=== PATIENT | female | born 1945 | race American Indian/Alaskan Native ===

== ENCOUNTER 2018-03-31 05:19 | Inpatient (IN) | payer MEDICARE, BC ==
[2018-03-31] MEDS: LACTATED RINGER'S 1,000 ML IV (06:00)
[2018-03-31] MEDS ORDERED: CEFAZOLIN 2 GM/50 ML (PMX) 50 ML (FOR WT < 120 KG) IVPB (06:00)
[2018-03-31] MEDS: CEFAZOLIN 2 GM/50 ML (PMX) 50 ML (FOR WT < 120 KG) IVPB (06:00)
[2018-03-31 06:36] LABS: ADD MAN DIFF? NO
[2018-03-31 06:38] LABS: WHITE BLOOD COUNT 6.5 10^3/ul (4.8-10.8)
[2018-03-31 06:38] LABS: BASOPHIL # 0.1 10^3/ul (0.0-0.1); BASOPHILS % 0.8 % (0.0-2.0); EOSINOPHILS # 0.3 10^3/ul (0.0-0.5); EOSINOPHILS % 4.8 % (0.0-7.0); HEMATOCRIT 39.6 % (37.0-47.0); HEMOGLOBIN 12.9 g/dl (12.0-16.0); LYMPHOCYTES # 1.4 10^3/ul (0.8-2.9); LYMPHOCYTES % 20.9 % (15.0-51.0); MEAN CORPUSCULAR HEMOGLOBIN 30.3 pg (29.0-33.0); MEAN CORPUSCULAR HGB CONC 32.6 g/dl (32.0-37.0); MEAN PLATELET VOLUME 10.5 fl (7.4-10.4); MONOCYTE # 0.6 10^3/ul (0.3-0.9); MONOCYTES % 9.2 % (0.0-11.0); NEUTROPHIL # 4.2 10^3/ul (1.6-7.5); PLATELET COUNT 199 10^3/UL (140-415); RED BLOOD COUNT 4.26 10^6/ul (4.20-5.40); RED CELL DISTRIBUTION WIDTH 14.6 % (11.5-14.5)
[2018-03-31] MEDS ORDERED: PROPOFOL 1000 MG INJ (07:00)
[2018-03-31] MEDS ORDERED: POLYMYXIN B 500000 UNIT INJ (07:05)
[2018-03-31 07:12] LABS: INR 0.99; PROTIME 13.2 Sec (11.9-14.9)
[2018-03-31 07:13] LABS: PARTIAL THROMBOPLASTIN TIME 26.9 Sec (25.0-35.0)
[2018-03-31 07:22] LABS: ALANINE AMINOTRANSFERASE 25 IU/L (13-69); ALBUMIN 3.8 g/dl (3.3-4.9); ALKALINE PHOSPHATASE 99 IU/L (42-121); ANION GAP 13 (8-16); ASPARTATE AMINO TRANSFERASE 24 IU/L (15-46); BILIRUBIN,TOTAL 0.3 mg/dl (0.2-1.3); CARBON DIOXIDE 26 mmol/L (21-31); CHLORIDE 108 mmol/L (97-110); GLUCOSE 92 mg/dl (70-220); TOTAL PROTEIN 6.5 g/dl (6.1-8.1)
[2018-03-31] MEDS ORDERED: PROPOFOL 20 ML (07:25)
[2018-03-31] MEDS ORDERED: CEFAZOLIN 1 GM INJ (07:25)
[2018-03-31] MEDS ORDERED: MIDAZOLAM 1 MG/ML 2 ML INJ (07:25)
[2018-03-31] MEDS ORDERED: FENTAnyl 50 MCG/ML VIAL (07:25)
[2018-03-31] MEDS ORDERED: DEXAMETHASONE 4 MG/ML 1 ML INJ (07:25)
[2018-03-31] MEDS ORDERED: ONDANSETRON 4 MG INJ (07:25)
[2018-03-31] MEDS ORDERED: NEOSTIGMINE 3 MG/3 ML SYRINGE (07:25)
[2018-03-31] MEDS ORDERED: GLYCOPYRROLATE 0.4 MG INJ (07:25)
[2018-03-31] MEDS ORDERED: ROCURONIUM 50 MG INJ (07:25)
[2018-03-31 07:26] LABS: BLOOD UREA NITROGEN 17 mg/dl (7-20); CALCIUM 9.2 mg/dl (8.4-10.2); POTASSIUM 3.9 mmol/L (3.5-5.1); SODIUM 143 mmol/L (135-144)
[2018-03-31] MEDS ORDERED: BUPIVACAINE 0.75%/DEXT (SPINAL) 2 ML INJ (07:27)
[2018-03-31] MEDS ORDERED: morphine SULFATE/PF (10 MG/10 ML) INJ (07:27)
[2018-03-31] MEDS ORDERED: NACL 0.9% 3 ML SYG IV (08:00)
[2018-03-31] MEDS ORDERED: MAGNESIUM HYDROXIDE 30ML CUP PO (08:00)
[2018-03-31] MEDS: ONDANSETRON 4 MG INJ IV ×3 (08:00→20:52)
[2018-03-31] MEDS ORDERED: DIPHENHYDRAMINE 50 MG INJ IV ×2 (08:00→08:30)
[2018-03-31] MEDS ORDERED: NALOXONE (0.4 MG/ML) INJ IV ×2 (08:00→08:30)
[2018-03-31] MEDS ORDERED: BISACODYL 10 MG SUPP PR (08:00)
[2018-03-31] MEDS ORDERED: SENNA/DOCUSATE NA (8.6MG/50MG) TAB PO (08:00)
[2018-03-31] MEDS ORDERED: oxyCODONE 5 MG TAB PO (08:00)
[2018-03-31] MEDS ORDERED: NA PHOSPHATE/BIPHOS 133 ML ENEMA PR (08:00)
[2018-03-31] MEDS: TRANEXAMIC ACID 1,000 MG in D5W 100 ML AT INCISION X1 IVPB (08:01)
[2018-03-31] MEDS: BACITRACIN 50000 UNITS INJ (08:16)
[2018-03-31] MEDS: POLYMYXIN B 500000 UNIT INJ IRR (08:16)
[2018-03-31] MEDS: TRANEXAMIC ACID 1,000 MG in D5W 100 ML AT CLOSURE X1 IVPB ×2 (08:17→09:38)
[2018-03-31] MEDS ORDERED: HYDROmorphONE 1 MG/5 ML IV SYRINGE IV ×3 (08:30)
[2018-03-31] MEDS ORDERED: hydrALAzine 20 MG INJ IV (08:30)
[2018-03-31] MEDS ORDERED: TRIMETHOBENZAMIDE 100 MG/ML VIAL IM (08:30)
[2018-03-31] MEDS ORDERED: OXYCODONE/ACETAMINOPHEN (5/325) TAB PO ×2 (08:30)
[2018-03-31] MEDS ORDERED: ONDANSETRON 4 MG INJ IV (08:30)
[2018-03-31] MEDS ORDERED: FENTAnyl 50 MCG/ML VIAL IV ×3 (08:30)
[2018-03-31] MEDS ORDERED: EPHEDrine SULFATE 50 MG/5 ML SYG IV (08:30)
[2018-03-31] MEDS ORDERED: MEPERIDINE 25 MG INJ IV (08:30)
[2018-03-31] MEDS ORDERED: IPRATROPIUM (NEB) 0.5 MG/2.5 ML AMP HHN (08:30)
[2018-03-31] MEDS ORDERED: LABETALOL HCL 20MG INJ IV (08:30)
[2018-03-31] MEDS ORDERED: MIDAZOLAM 1 MG/ML 2 ML INJ IV (08:30)
[2018-03-31] MEDS ORDERED: ALBUTEROL 0.083% (NEB) 2.5 MG/3 ML AMP HHN (08:30)
[2018-03-31] MEDS ORDERED: APIXABAN 5 MG TABLET PO (09:00)
[2018-03-31] MEDS ORDERED: CEFAZOLIN 1 GM/50 ML (PMX) 50 ML IVPB (10:45)
[2018-03-31] MEDS: DOCUSATE SODIUM 100 MG CAP PO (10:46)
[2018-03-31] MEDS: CEFAZOLIN 1 GM/50 ML (PMX) 50 ML IVPB ×2 (10:48→22:13)
[2018-03-31] MEDS: KETOROLAC 15 MG INJ IV (12:12)
[2018-03-31] MEDS: SOD CHLORIDE 0.9% 1,000 ML IV ×2 (12:37→20:06)
[2018-03-31] MEDS ORDERED: SUGAMMADEX SODIUM 200 MG/2 ML VIAL IV (12:46)
[2018-03-31] MEDS: oxyCODONE 5 MG TAB PO ×3 (13:39→20:47)
[2018-03-31] MEDS: DIPHENHYDRAMINE 25 MG CAP PO (14:54)
[2018-03-31] MEDS: TOBRAMYCIN/DEXAMETH 2.5 ML OPH LEFT EYE (17:44)
[2018-03-31] MEDS: DIPHENHYDRAMINE 50 MG INJ IV ×2 (19:42→20:48)
[2018-03-31] MEDS: L ACIDOPHIL/B LACTIS/B LONGUM CAPSULE PO (20:51)
[2018-03-31] MEDS: ATORVASTATIN 80 MG TAB PO (20:51)
[2018-03-31] MEDS: SULFASALAZINE 500 MG TAB PO (20:51)
[2018-03-31] MEDS: METOPROLOL (XL) 50 MG TAB PO (20:52)
[2018-03-31] MEDS: FOLIC ACID 1 MG TAB PO (20:52)
[2018-03-31] MEDS: DIGOXIN 0.125 MG TAB PO (20:54)
[2018-03-31] MEDS: GABAPENTIN 100 MG CAP PO (21:00)
[2018-04-01] MEDS: TOBRAMYCIN/DEXAMETH 2.5 ML OPH LEFT EYE ×3 (00:02→14:59)
[2018-04-01] MEDS: oxyCODONE 5 MG TAB PO ×5 (00:06→14:41)
[2018-04-01] MEDS: KETOROLAC 15 MG INJ IV ×2 (00:06→11:28)
[2018-04-01] MEDS: DIPHENHYDRAMINE 25 MG CAP PO ×3 (00:24→14:40)
[2018-04-01] MEDS: SOD CHLORIDE 0.9% 1,000 ML IV (00:31)
[2018-04-01] MEDS: ONDANSETRON 4 MG INJ IV ×4 (01:27→08:16)
[2018-04-01 05:09] LABS: ADD MAN DIFF? NO
[2018-04-01 05:18] LABS: BASOPHILS % 0.1 % (0.0-2.0); HEMATOCRIT 36.1 % (37.0-47.0); HEMOGLOBIN 10.9 g/dl (12.0-16.0); LYMPHOCYTES # 1.1 10^3/ul (0.8-2.9); LYMPHOCYTES % 7.6 % (15.0-51.0); MEAN CORPUSCULAR HEMOGLOBIN 29.3 pg (29.0-33.0); MEAN CORPUSCULAR HGB CONC 30.2 g/dl (32.0-37.0); MEAN PLATELET VOLUME 10.2 fl (7.4-10.4); MONOCYTE # 1.4 10^3/ul (0.3-0.9); MONOCYTES % 9.3 % (0.0-11.0); NEUTROPHILS % 82.5 % (39.0-77.0); PLATELET COUNT 205 10^3/UL (140-415); RED BLOOD COUNT 3.72 10^6/ul (4.20-5.40); RED CELL DISTRIBUTION WIDTH 14.6 % (11.5-14.5)
[2018-04-01 05:18] LABS: WHITE BLOOD COUNT 14.6 10^3/ul (4.8-10.8)
[2018-04-01 05:55] LABS: ANION GAP 13 (8-16); BLOOD UREA NITROGEN 19 mg/dl (7-20); CALCIUM 8.2 mg/dl (8.4-10.2); CARBON DIOXIDE 23 mmol/L (21-31); CHLORIDE 105 mmol/L (97-110); CREATININE 0.92 mg/dl (0.44-1.00); GLUCOSE 102 mg/dl (70-220); POTASSIUM 4.2 mmol/L (3.5-5.1); SODIUM 137 mmol/L (135-144)
[2018-04-01] MEDS: LACTATED RINGER'S 1,000 ML IV (06:00)
[2018-04-01] MEDS: PANTOPRAZOLE (EC) 40 MG TAB PO (06:10)
[2018-04-01] MEDS: CEFAZOLIN 1 GM/50 ML (PMX) 50 ML IVPB (06:10)
[2018-04-01] MEDS: L ACIDOPHIL/B LACTIS/B LONGUM CAPSULE PO (08:11)
[2018-04-01] MEDS: DOCUSATE SODIUM 100 MG CAP PO (08:12)
[2018-04-01] MEDS: APIXABAN 5 MG TABLET PO (08:12)
[2018-04-01] MEDS: ESCITALOPRAM 10 MG TAB PO (08:13)
[2018-04-01] MEDS: SULFASALAZINE 500 MG TAB PO ×2 (08:13→14:40)
[2018-04-01] MEDS: BENAZEPRIL 20 MG TAB PO (08:14)
[2018-04-01] MEDS: AMIODARONE 200 MG TAB PO (08:15)
[2018-04-01] MEDS: GABAPENTIN 100 MG CAP PO (08:16)
[2018-04-01] MEDS ORDERED: NON-FORMULARY/PATIENT OWN MED (Lactobacillus Combo No.11 (Probiotic) 1 CAP) PO (09:00)
[2018-04-01] MEDS ORDERED: CELECOXIB 200 MG CAP PO (09:00)
[2018-04-01] MEDS ORDERED: CELECOXIB 100 MG CAP PO (09:00)
[2018-04-01] MEDS ORDERED: AMIODARONE 200 MG TAB PO (09:00)
[2018-04-01] MEDS: BETHANECHOL 25 MG TAB PO (14:40)
[2018-04-01] MEDS ORDERED: FERROUS FUMARATE (SR) TAB PO (21:00)
== END 2018-04-01 15:25 | disposition home health service (06) | DRG 470 ==
LOC: REC 05:19 → MS1 11:17
PROC: 0SRB04A Replacement of Left Hip Joint with Ceramic on Polyethylene Synthetic Substitute, Uncemented, Open Approach (ICD-10-PCS; principal; 2018-03-31 07:28)
DX: M16.12 Unilateral primary osteoarthritis, left hip (principal); K50.90 Crohn's disease, unspecified, without complications; I48.2 Chronic atrial fibrillation; E78.5 Hyperlipidemia, unspecified; K21.9 Gastro-esophageal reflux disease without esophagitis; F41.9 Anxiety disorder, unspecified; M51.16 Intervertebral disc disorders with radiculopathy, lumbar region; I10 Essential (primary) hypertension; G89.29 Other chronic pain; Z79.02 Long term (current) use of antithrombotics/antiplatelets
CPT/HCPCS: 73530; 80048; 80053; 85025; 85610; 85730; 86850; 86900; 86901; 87081; 88304; 88311; 97116; 97163; 97530